=== PATIENT | female | born 1990 | race Caucasian/White ===

== ENCOUNTER 2023-03-25 18:10 | Emergency (ER) | payer MEDICAID ==
[2023-03-25] MEDS ORDERED: Proparacaine 0.5% Ophth Soln 15 ML Bottle EYELF ONE (19:03)
[2023-03-25] MEDS ORDERED: Fluorescein 1 MG Ophth Strip EYELF ONE (19:04)
[2023-03-25] MEDS ORDERED: Erythromycin Base 0.5% Ophth Oint 1 GM Tube EYELF ONE (19:36)
== END 2023-03-25 19:48 | disposition home or self-care (01) ==
LOC: JD.ED 18:10
DX: S05.02XA Injury of conjunctiva and corneal abrasion without foreign body, left eye, initial encounter (principal); X58.XXXA Exposure to other specified factors, initial encounter
CPT/HCPCS: 99283; A9270; 99282; J3490

== ENCOUNTER 2023-05-26 19:17 | Emergency (ER) | payer MEDICAID ==
[2023-05-26] MEDS ORDERED: Ketorolac 30 MG/ML SDV IVPUSH ONE (19:47)
[2023-05-26] MEDS ORDERED: Metoclopramide 10 MG/2 ML SDV IVPUSH ONE (19:48)
[2023-05-26] MEDS ORDERED: diphenhydrAMINE 50 MG/ML SDV IVPUSH ONE (19:48)
[2023-05-26] MEDS ORDERED: Sodium Chloride 0.9% 1,000 ML IV SCH (20:00)
[2023-05-26] MEDS ORDERED: LORazepam 2 MG/ML SDV IVPUSH ONE ×2 (20:36→21:59)
[2023-05-26 20:38] LABS: CORONAVIRUS COVID-19 NAA NEGATIVE (NEGATIVE); INFLUENZA A NAA NEGATIVE (NEGATIVE)
== END 2023-05-26 23:15 | disposition home or self-care (01) ==
LOC: JD.ED 19:17
DX: G43.909 Migraine, unspecified, not intractable, without status migrainosus (principal); Z20.822 Contact with and (suspected) exposure to COVID-19
CPT/HCPCS: 0240U; 96374; 96375; 96376; 99284; J1200; J1885; J2060; J2765; J7030; 99282

== ENCOUNTER 2023-09-24 17:34 | Emergency (ER) | payer MEDICAID ==
[2023-09-24] MEDS: Sodium Chloride 0.9% 1,000 ML IV STA (19:00)
[2023-09-24] MEDS: Ondansetron 4 MG/2 ML SDV IVPUSH ONE (19:00)
[2023-09-24] MEDS: diphenhydrAMINE 50 MG/ML SDV IVPUSH ONE (19:00)
[2023-09-24] MEDS: Ketorolac 30 MG/ML SDV IVPUSH ONE (19:00)
[2023-09-24] MEDS: LORazepam 2 MG/ML SDV IVPUSH ONE ×2 (19:01→20:15)
[2023-09-24] MEDS: Meclizine 25 MG Tab PO ONE (19:01)
== END 2023-09-24 21:06 | disposition home or self-care (01) ==
LOC: JD.ED 17:34
DX: G43.909 Migraine, unspecified, not intractable, without status migrainosus (principal); E66.9 Obesity, unspecified; F17.210 Nicotine dependence, cigarettes, uncomplicated; Z79.899 Other long term (current) drug therapy; Z86.16 Personal history of COVID-19; Z68.33 Body mass index [BMI] 33.0-33.9, adult
CPT/HCPCS: 96374; 96375; 96376; 99283; A9270; J1200; J1885; J2060; J2405; J7030

== ENCOUNTER 2023-12-24 12:23 | Emergency (ER) | payer MEDICAID ==
[2023-12-24] MEDS: Ibuprofen 800 MG Tab PO ONE (12:45)
[2023-12-24] MEDS: Acetaminophen 325 MG Tab PO ONE (12:45)
== END 2023-12-24 13:40 | disposition home or self-care (01) ==
LOC: JD.ED 12:23
DX: S93.492A Sprain of other ligament of left ankle, initial encounter (principal); E66.9 Obesity, unspecified; Z86.16 Personal history of COVID-19; Z90.49 Acquired absence of other specified parts of digestive tract; Z79.899 Other long term (current) drug therapy; Z68.33 Body mass index [BMI] 33.0-33.9, adult; X50.1XXA Overexertion from prolonged static or awkward postures, initial encounter
CPT/HCPCS: 73610; 99283; A9270; 99282

== ENCOUNTER 2023-12-29 23:13 | Emergency (ER) | payer MEDICAID ==
[2023-12-29] MEDS: Ondansetron 4 MG Tab.DIS PO ONE (23:45)
== END 2023-12-30 00:41 | disposition home or self-care (01) ==
LOC: JD.ED 23:13
DX: R10.84 Generalized abdominal pain (principal); Z77.21 Contact with and (suspected) exposure to potentially hazardous body fluids; F17.210 Nicotine dependence, cigarettes, uncomplicated; Z79.899 Other long term (current) drug therapy
CPT/HCPCS: 99282; 99283; A9270-GY

== ENCOUNTER 2024-03-03 14:50 | Emergency (ER) | payer SELFPAY ==
[2024-03-03] MEDS: Ondansetron 4 MG/2 ML SDV IVPUSH ONE ×2 (16:03→22:27)
[2024-03-03] MEDS: Lactated Ringers 1,000 ML IV ONE (16:03)
[2024-03-03] MEDS: Ketorolac 30 MG/ML SDV IVPUSH SCH (16:03)
[2024-03-03] MEDS: Sodium Chloride 0.9% 10 ML Syringe FLUSH PRN (16:04)
[2024-03-03] MEDS: LORazepam 2 MG/ML SDV IVPUSH ONE ×2 (16:04→16:05)
[2024-03-03 16:13] LABS: BASOPHILS PERCENT AUTO 0.3 % (0.0-1.0); EOSINOPHILS ABSOLUTE AUTO 0.1 K/mm3 (0.0-0.4); EOSINOPHILS PERCENT AUTO 1.3 % (0.0-6.0); HEMATOCRIT 40.3 % (37.0-47.0); HEMOGLOBIN 13.2 gm/dl (12.0-16.0); IMMATURE GRAN ABSOLUTE AUTO 0.03 K/mm3 (0.00-0.05); IMMATURE GRAN PERCENT AUTO 0.3 % (0.0-0.4); LYMPHOCYTES ABSOLUTE AUTO 3.6 K/mm3 (1.0-4.8); MEAN CORPUSCULAR HEMOGLOBIN 30.3 pg (28.0-32.0); MEAN CORPUSCULAR HGB CONC 32.8 g/dl (32.0-36.0); MEAN CORPUSCULAR VOLUME 92.6 fl (83.0-99.0); MEAN PLATELET VOLUME 9.9 fl (9.4-12.3); MONOCYTES ABSOLUTE AUTO 0.9 K/mm3 (0.0-0.8); NEUTROPHILS ABSOLUTE AUTO 4.6 K/mm3 (1.8-7.7); NEUTROPHILS PERCENT AUTO 49.1 % (41.0-71.0); PLATELET COUNT,PLT 307 K/mm3 (150-400); RED BLOOD CELL COUNT 4.35 M/mm3 (4.10-5.30); WHITE BLOOD CELL COUNT,WBC 9.34 K/mm3 (3.9-11.3)
[2024-03-03 16:49] LABS: A/G RATIO 1.3 (1-2); ALBUMIN 3.8 g/dl (3.4-5.0); ANION GAP 12.5 (5-15); BILIRUBIN TOTAL 0.3 mg/dL (0.2-1.0); BUN/CREATININE RATIO 11.1 (14-18); CALCIUM 8.7 mg/dL (8.5-10.1); CREATININE 0.9 mg/dL (0.55-1.02); EST CRCL DRUG DOSING (CG) 69.66 mL/min; PROTEIN TOTAL,TP 6.7 g/dl (6.4-8.2)
[2024-03-03 16:50] LABS: POTASSIUM,K 4.5 mEq/L (3.5-5.1); TSH 1.014 uIU/mL (0.358-3.74)
[2024-03-03 17:21] LABS: APPEARANCE,URINE CLEAR (Clear); BILIRUBIN,URINE NEGATIVE (Negative); COLOR,URINE YELLOW (Yellow); GLUCOSE,URINE NEGATIVE (Negative); KETONES,URINE NEGATIVE (Negative); LEUKOCYTE ESTERASE,URINE NEGATIVE (Negative); NITRITE,URINE NEGATIVE (Negative); OCCULT BLOOD,URINE NEGATIVE (Negative); PROTEIN,URINE NEGATIVE (Negative); UROBILINOGEN,URINE 0.2 (0.2-1.0)
[2024-03-03 17:29] LABS: BARBITURATE SCREEN,URINE NEGATIVE (CUTOFF=200); BENZODIAZEPINES SCREEN,URINE PRESUMPTIVE POSITIVE (CUTOFF=150); BUPRENORPHINE SCREEN,URINE NEGATIVE (CUTOFF=10); METHADONE SCREEN, URINE NEGATIVE (CUTOFF=200); METHAMPHETAMINES SCREEN, URINE NEGATIVE (CUTOFF=500); OXYCODONE SCREEN,URINE NEGATIVE (CUT0FF=100); THC SCREEN,URINE 20 NG/ML NEGATIVE (CUTOFF=50)
[2024-03-03 17:30] LABS: AMPHETAMINES SCREEN, URINE NEGATIVE (CUTOFF=500)
[2024-03-03 17:35] LABS: CORONAVIRUS COVID-19 NAA NEGATIVE (NEGATIVE); INFLUENZA A NAA NEGATIVE (NEGATIVE); RESPIRATORY SYNCYTIAL VIR NAA NEGATIVE (NEGATIVE)
[2024-03-03] MEDS: Metoclopramide 10 MG/2 ML SDV IVPUSH ONE (17:56)
[2024-03-03] MEDS: diphenhydrAMINE 50 MG/ML SDV IVPUSH ONE (17:56)
[2024-03-03] MEDS ORDERED: Ketorolac 15 MG/ML SDV IVPUSH ONE (22:04)
[2024-03-03] MEDS: busPIRone 15 MG Tab PO ONE (22:19)
[2024-03-03] MEDS: ALPRAZolam 0.5 MG Tab PO SCH (22:19)
[2024-03-03] MEDS: busPIRone 15 MG Tab PO SCH (22:20)
[2024-03-03] MEDS: lamoTRIgine 100 MG Tab PO ONE (22:22)
[2024-03-04] MEDS ORDERED: lamoTRIgine 100 MG Tab PO ONE (08:00)
== END 2024-03-03 22:45 ==
LOC: JD.ED 14:50
DX: R42 Dizziness and giddiness (principal); F32.A Depression, unspecified; F41.9 Anxiety disorder, unspecified; E66.9 Obesity, unspecified; Z68.33 Body mass index [BMI] 33.0-33.9, adult; Z79.899 Other long term (current) drug therapy; Z90.49 Acquired absence of other specified parts of digestive tract
CPT/HCPCS: 0241U; 36415; 80053; 80143; 80179; 80306; 80307; 81003; 84443; 85025; 93005; 93010; 96361; 96374; 96375; 96376; 99284; 99285-25; A9270-GY; J1885; J2060; J2405; J3490; J7120

== ENCOUNTER 2024-04-14 13:04 | Emergency (ER) | payer SELFPAY ==
[2024-04-14] MEDS: Ondansetron 4 MG/2 ML SDV IVPUSH ONE (14:09)
[2024-04-14] MEDS: Ketorolac 30 MG/ML SDV IVPUSH ONE (14:13)
[2024-04-14] MEDS: Dextrose 5%-0.9% NaCl 1,000 ML IV SCH (14:16)
[2024-04-14] MEDS: LORazepam 2 MG/ML SDV IVPUSH ONE (14:38)
[2024-04-14] MEDS: HYDROmorphone 1 MG/ML Syringe IVPUSH ONE (15:56)
== END 2024-04-14 15:55 | disposition home or self-care (01) ==
LOC: JD.ED 13:04
DX: G43.909 Migraine, unspecified, not intractable, without status migrainosus (principal); E66.9 Obesity, unspecified; Z79.899 Other long term (current) drug therapy
CPT/HCPCS: 96361; 96374; 96375; 99283; J1885; J2060; J2405; J7042

== ENCOUNTER 2024-11-25 19:44 | Emergency (ER) | payer BC ==
[2024-11-25] MEDS: Ketorolac 60 MG/2 ML SDV IM ONE (20:16)
== END 2024-11-25 21:00 | disposition home or self-care (01) ==
LOC: JD.ED 19:44
DX: M25.561 Pain in right knee (principal); Z79.899 Other long term (current) drug therapy; X50.0XXA Overexertion from strenuous movement or load, initial encounter; Y93.89 Activity, other specified
CPT/HCPCS: 73562; 96372; 99284; J1885

== ENCOUNTER 2025-02-05 12:25 | Emergency (ER) | payer BC ==
[2025-02-05 13:10] LABS: BASOPHILS PERCENT AUTO 0.1 % (0.0-1.0); EOSINOPHILS ABSOLUTE AUTO 0.1 K/mm3 (0.0-0.4); EOSINOPHILS PERCENT AUTO 1.2 % (0.0-6.0); HEMATOCRIT 37.8 % (37.0-47.0); HEMOGLOBIN 12.5 gm/dl (12.0-16.0); IMMATURE GRAN ABSOLUTE AUTO 0.02 K/mm3 (0.00-0.05); IMMATURE GRAN PERCENT AUTO 0.3 % (0.0-0.4); LYMPHOCYTES ABSOLUTE AUTO 2.5 K/mm3 (1.0-4.8); LYMPHOCYTES PERCENT AUTO 33.3 % (24.0-44.0); MEAN CORPUSCULAR HEMOGLOBIN 30.1 pg (28.0-32.0); MEAN CORPUSCULAR HGB CONC 33.1 g/dl (32.0-36.0); MEAN CORPUSCULAR VOLUME 91.1 fl (83.0-99.0); MEAN PLATELET VOLUME 9.8 fl (9.4-12.3); MONOCYTES ABSOLUTE AUTO 0.6 K/mm3 (0.0-0.8); MONOCYTES PERCENT AUTO 8.2 % (0.0-8.0); NEUTROPHILS ABSOLUTE AUTO 4.2 K/mm3 (1.8-7.7); NEUTROPHILS PERCENT AUTO 56.9 % (41.0-71.0); PLATELET COUNT,PLT 266 K/mm3 (150-400); RED BLOOD CELL COUNT 4.15 M/mm3 (4.10-5.30); WHITE BLOOD CELL COUNT,WBC 7.41 K/mm3 (3.9-11.3)
[2025-02-05 13:30] LABS: INR 0.96; PROTHROMBIN TIME 10.2 SECONDS (9.7-12.0)
[2025-02-05 13:31] LABS: PTT,PARTIAL THROMBOPLSTIN TIME 25.3 SECONDS (21.7-31.4)
[2025-02-05 13:45] LABS: A/G RATIO 1.2 (1-2); ALBUMIN 3.4 g/dl (3.4-5.0); ANION GAP 9.3 (5-15); BILIRUBIN TOTAL 0.4 mg/dL (0.2-1.0); BUN/CREATININE RATIO 13.8 (14-18); CALCIUM 8.3 mg/dL (8.5-10.1); CREATININE 0.8 mg/dL (0.55-1.02); EST CRCL DRUG DOSING (CG) 106.14 mL/min; MAGNESIUM 1.8 mg/dL (1.8-2.4); POTASSIUM,K 4.3 mEq/L (3.5-5.1); PROTEIN TOTAL,TP 6.3 g/dl (6.4-8.2); TSH 1.138 uIU/mL (0.358-3.74)
[2025-02-05] MEDS: Ketorolac 60 MG/2 ML SDV IM ONE (14:27)
== END 2025-02-05 15:46 | disposition home or self-care (01) ==
LOC: JD.ED 12:25
DX: R00.2 Palpitations (principal); R07.9 Chest pain, unspecified; E66.9 Obesity, unspecified; F17.200 Nicotine dependence, unspecified, uncomplicated; Z79.899 Other long term (current) drug therapy; Z68.28 Body mass index [BMI] 28.0-28.9, adult
CPT/HCPCS: 36415; 71045; 71045-26; 80053; 83735; 83880; 84443; 84484; 85025; 85379; 85610; 85730; 93005; 93010; 96372; 99284; 99285; J1885

== ENCOUNTER 2025-02-16 23:09 | Emergency (ER) | payer BC ==
[2025-02-17] MEDS: Bacitracin Oint 15 GM Tube TOP ONE (00:18)
[2025-02-17] MEDS: oxyCODONE 5 MG Tab PO ONE (00:18)
== END 2025-02-17 00:22 | disposition home or self-care (01) ==
LOC: JD.ED 23:09
DX: L24.5 Irritant contact dermatitis due to other chemical products (principal); E66.9 Obesity, unspecified; Z79.899 Other long term (current) drug therapy; Z90.49 Acquired absence of other specified parts of digestive tract; Z68.37 Body mass index [BMI] 37.0-37.9, adult
CPT/HCPCS: 99283; A9270

== ENCOUNTER 2025-02-27 21:12 | Emergency (ER) | payer BC ==
[2025-02-27] MEDS: Ketorolac 60 MG/2 ML SDV IM ONE (22:47)
[2025-02-27] MEDS: Acetaminophen/HYDROcodone 325-5 MG Tab PO ONE (22:47)
== END 2025-02-27 22:45 | disposition home or self-care (01) ==
LOC: JD.ED 21:12
DX: M25.561 Pain in right knee (principal); E66.9 Obesity, unspecified; Z79.899 Other long term (current) drug therapy; Z90.49 Acquired absence of other specified parts of digestive tract; Z68.36 Body mass index [BMI] 36.0-36.9, adult; X58.XXXA Exposure to other specified factors, initial encounter
CPT/HCPCS: 73562; 96372; 99283; J1885